=== PATIENT | male | born 1955 | race Caucasian/White ===

== ENCOUNTER → 2016-05-12 | Outpatient (CLI) | payer BC | END | disposition home or self-care (01) | LOC: GMAL 10:26 | PROVIDERS: ATTEND Family Medicine | DX: Z12.5 Encounter for screening for malignant neoplasm of prostate (principal); E55.9 Vitamin D deficiency, unspecified ==

== ENCOUNTER → 2017-05-21 | Outpatient (CLI) | payer BC | LOC: GMAL 10:56 | PROVIDERS: ATTEND Family Medicine | DX: E29.1 Testicular hypofunction (principal); E55.9 Vitamin D deficiency, unspecified; Z12.5 Encounter for screening for malignant neoplasm of prostate ==

== ENCOUNTER → 2018-09-21 | Outpatient (CLI) | payer BC | LOC: LAB.O 11:14 | PROVIDERS: ATTEND Internal Medicine Gastroenterology | DX: R10.10 Upper abdominal pain, unspecified (principal) ==

== ENCOUNTER → 2020-02-09 | Outpatient (CLI) | payer OTHER | LOC: GMAL 10:40 | PROVIDERS: ATTEND Family Medicine | DX: I10 Essential (primary) hypertension (principal); E11.9 Type 2 diabetes mellitus without complications; Z13.29 Encounter for screening for other suspected endocrine disorder; E78.49 Other hyperlipidemia; Z12.5 Encounter for screening for malignant neoplasm of prostate; D51.3 Other dietary vitamin B12 deficiency anemia; E55.9 Vitamin D deficiency, unspecified ==

== ENCOUNTER → 2020-02-23 | Outpatient (CLI) | payer OTHER ==
--- NOTE | 2020-02-24 15:48 | US ---
EXAM DESCRIPTION: Carotid Duplex: ULTRASOUND. CLINICAL HISTORY: 64 years Male OCCLUSION AND STENOSIS OF UNSPECIFIED CAROTID ART COMPARISON: None. TECHNIQUE: Transcutaneous scanning utilizing merritt-scale and Doppler modes to evaluate the bilateral carotid systems and vertebral arteries. Percentage of diameter of stenosis or no stenosis recorded will be based upon NASCET criteria. FINDINGS: Peak systolic/end diastolic velocities (CM-Sec) CCA Right 64/8 Left 79/8. ICA Right proximal 52/9, distal 61/18. Left proximal 44/9, Distal 45/15. Vertebral Right 37/9 Left 34/6. ECA (PS Only) Right 85 left knee 8. ICA/CCA peak systolic velocity ratio: Right 1.0 Left 0.6 ICA/CCA end diastolic velocity ratio: Right 2.4, Left 1.8 Vertebral arteries: antegrade flow. Comments Comments: [employer] calcification bilaterally. Right common carotid mid bulb, area and diameter stenosis less than 50%. Left common carotid mid bulb, area and diameter stenosis less than 20%. IMPRESSION: 1. Doppler evaluation of the bilateral carotid systems and vertebral arteries shows no hemodynamically significant stenoses (less than 70%). 2. Minimal amount of plaque in the carotid arteries bilaterally. Bilateral vertebral arteries showed antegrade-cephalad flow. Electronically signed by: Reinier Anaya MD 02/24/2020 3:46 PM [employer]
== END ==
LOC: US 08:19
PROVIDERS: ATTEND Family Medicine
DX: I65.23 Occlusion and stenosis of bilateral carotid arteries (principal)